=== PATIENT | female | born 1955 | race Caucasian/White ===

== ENCOUNTER → 2017-07-20 | Outpatient (CLI) | payer BC ==
[2017-07-20 09:58] LABS: MEAN CORPUSCULAR HGB CONC 33.2 g/dl (32.0-36.5); MEAN CORPUSCULAR VOLUME 96.6 fl (80.0-96.0); PLATELET COUNT, AUTOMATED 264 10^3/uL (150-450); RED CELL DISTRIBUTION WIDTH 12.4 % (11.5-14.5); WHITE BLOOD COUNT 4.6 10^3/uL (4.0-10.0)
--- NOTE | 2017-07-20 10:12 | ECGEPIP ---
Stationary ECG Study [facility] Test Date: 2017-07-20 Pat Name: JO ANN BLACK Department: Room: - Gender: F Prescription Clerk: LUCHO : 1955 Requested By: Ivy Aguero Order Number: [id number] Reading MD: Phill Merino Measurements Intervals [place] Rate: 67 P: 39 MD: 152 QRS: 42 QRSD: 75 T: 4 QT: 381 QTc: 404 Interpretive Statements SINUS RHYTHM MINIMAL ST DEPRESSION Electronically Signed On 07-20-2017 10:11:52 EDT by Phill Merino
--- NOTE | 2017-07-20 10:17 | REP ---
Chest two views HISTORY: Hypertension Comparison: 08/11/1950 The lungs are clear. The heart is normal in size. The pulmonary vasculature is normal in appearance. The bony structure is intact. IMPRESSION: No acute disease. Signed by Deyvi Roberts MD 07/20/2017 10:09 A
[2017-07-20 10:48] LABS: ALBUMIN 3.7 GM/DL (3.2-5.2); ALBUMIN/GLOBULIN RATIO 1.19 (1.00-1.93); ALKALINE PHOSPHATASE 90 U/L (45-117); ALT/SGPT 29 U/L (12-78); ANION GAP 4 MEQ/L (8-16); AST/SGOT 16 U/L (15-37); BILIRUBIN,TOTAL 0.5 MG/DL (0.2-1.0); BLOOD UREA NITROGEN 17 MG/DL (7-18); CALCIUM LEVEL 8.9 MG/DL (8.8-10.2); CARBON DIOXIDE LEVEL 29 MEQ/L (21-32); CHLORIDE LEVEL 109 MEQ/L (98-107); CHOLESTEROL LEVEL 203 MG/DL (<200); GLOMERULAR FILTRATION RATE > 60.0 (>45); GLUCOSE, FASTING 96 MG/DL (80-110); POTASSIUM SERUM 4.7 MEQ/L (3.5-5.1); SODIUM LEVEL 142 MEQ/L (136-145); TOTAL PROTEIN 6.8 GM/DL (6.4-8.2); TRIGLYCERIDES LEVEL 46 MG/DL (<150)
== END ==
LOC: M LAB 09:36
PROVIDERS: ATTEND Family Medicine
DX: I10 Essential (primary) hypertension (principal); E03.9 Hypothyroidism, unspecified; R53.83 Other fatigue

== ENCOUNTER → 2018-11-06 | Outpatient (CLI) | payer OTHER ==
[2018-11-06 10:03] LABS: HEMATOCRIT 43.7 % (36.0-47.0); HEMOGLOBIN 14.7 g/dl (12.0-15.5); MEAN CORPUSCULAR HEMOGLOBIN 31.5 pg (27.0-33.0); MEAN CORPUSCULAR HGB CONC 33.6 g/dl (32.0-36.5); MEAN CORPUSCULAR VOLUME 93.8 fl (80.0-96.0); PLATELET COUNT, AUTOMATED 254 10^3/uL (150-450); RED BLOOD COUNT 4.66 10^6/uL (4.00-5.40); WHITE BLOOD COUNT 5.8 10^3/uL (4.0-10.0)
[2018-11-06 10:38] LABS: HEMOGLOBIN A1c 6.2 %
[2018-11-06 10:43] LABS: ALBUMIN 3.8 GM/DL (3.2-5.2); ALT/SGPT 33 U/L (12-78); BILIRUBIN,TOTAL 0.4 MG/DL (0.2-1.0); BLOOD UREA NITROGEN 17 MG/DL (7-18); CALCIUM LEVEL 8.6 MG/DL (8.8-10.2); CARBON DIOXIDE LEVEL 26 MEQ/L (21-32); CHLORIDE LEVEL 108 MEQ/L (98-107); CHOLESTEROL LEVEL 217 MG/DL (<200); CHOLESTEROL RISK RATIO 2.614 (<5); CREATININE FOR GFR 0.82 MG/DL (0.55-1.30); GLOMERULAR FILTRATION RATE > 60.0 (>45); GLUCOSE, FASTING 101 MG/DL (70-100); HDL CHOLESTEROL 83 MG/DL (>40); LDL CHOLESTEROL 119 MG/DL (<100); NON-HDL-C 134 MG/DL; SODIUM LEVEL 142 MEQ/L (136-145); TOTAL 25(OH) VITAMIN D 50.6 NG/ML (30.0-100.0); TOTAL PROTEIN 6.8 GM/DL (6.4-8.2); TRIGLYCERIDES LEVEL 73 MG/DL (<150)
--- NOTE | 2018-11-06 12:22 | REPMRS ---
Patient History The patient states she has not had a clinical breast exam in over a year. Family history of breast cancer at age 50 or over in paternal aunt, breast cancer at age 50 or over in paternal aunt. Left breast bx -benign, years ago Digital Mammo Screening Bilat: November 06, 2018 - Exam #: [id number] Bilateral CC and MLO view(s) were taken. Technologist: Wanda Wyman Technologist Prior study comparison: August 11, 2015, bilateral digital mammo screening bilat performed at [facility]. July 15, 2012, bilateral digital woman screen mammo, performed at [facility]. August 11, 2009, digital bilateral screening mammo performed at [facility]. FINDINGS: There are scattered fibroglandular densities. There has been no change in the appearance of the mammogram from the prior studies. There is a mild amount of scattered fibroglandular density which is fairly symmetric. There is no interval development of dominant mass, architectural distortion, or clustered microcalcification suggestive of malignancy. 3-D tomosynthesis shows no additional findings. Assessment: BI-RADS/ACR category 1 mammogram. Negative Mammogram. Recommendation Routine screening mammogram of both breasts in 1 year (for women over age 40). This patient's Lifetime Breast Cancer RIsk is estimated at 9.3 %. This mammogram was interpreted with the aid of an FDA-approved computer-aided dectection system. Electronically Signed By: Pa Patiño MD 11/06/18 [id number]
--- NOTE | 2018-11-06 21:40 | ECGEPIP ---
Stationary ECG Study [facility] Test Date: 2018-11-06 Pat Name: JO ANN BLACK Department: Room: - Gender: F Community Relations Officer: RENATO : 1955 Requested By: Ivy Aguero Order Number: [id number] Reading MD: Gene Samayoa Measurements Intervals [place] Rate: 83 P: 19 LA: 145 QRS: 24 QRSD: 72 T: -2 QT: 371 QTc: 436 Interpretive Statements SINUS RHYTHM WITH OCCASIONAL VENTRICULAR PREMATURE COMPLEXES NON-SPECIFIC STT ABNORMALITIES PVC AND STT ABNORMALITY ARE NEW SINCE 07/20/17 Electronically Signed On 11-06-2018 21:40:29 EST by Gene Samayoa
--- NOTE | 2018-11-07 03:54 | REP ---
Clinical: Hypertension and fatigue . Comparison: 07/20/2017 . Technique: PA and lateral. Findings: The mediastinum and cardiac silhouette are normal. The lung haynes are clear and without acute consolidation, effusion, or pneumothorax. The skeletal structures are intact and normal. Impression: 1. No acute cardiopulmonary process. Electronically Signed by Josef Fam MD 11/07/2018 03:46 A
== END ==
LOC: M LAB 09:18
PROVIDERS: ATTEND Family Medicine
DX: Z12.31 Encounter for screening mammogram for malignant neoplasm of breast (principal); I10 Essential (primary) hypertension; E03.9 Hypothyroidism, unspecified